=== PATIENT | female | born 2000 | race Caucasian/White ===

== ENCOUNTER → 2024-10-05 08:46 | Outpatient (REF) | payer OTHER, SELFPAY | LOC: PNTC 08:46 | PROVIDERS: ATTENDING PHYSICIAN Nurse Practitioner Family | DX: O36.70X0 Maternal care for viable fetus in abdominal pregnancy, unspecified trimester, not applicable or unspecified (principal) | CPT/HCPCS: 76801 ==

== ENCOUNTER → 2024-10-26 06:58 | Outpatient (REF) | payer OTHER, SELFPAY | LOC: PNTC 06:58 | PROVIDERS: ATTENDING PHYSICIAN Student in an Organized Health Care Education/Training Program | DX: Z36.0 Encounter for antenatal screening for chromosomal anomalies (principal); Z36.82 Encounter for antenatal screening for nuchal translucency | CPT/HCPCS: 76801; 76813 ==

== ENCOUNTER → 2024-12-21 08:41 | Outpatient (REF) | payer OTHER, SELFPAY | LOC: PNTC 08:41 | PROVIDERS: ATTENDING PHYSICIAN Student in an Organized Health Care Education/Training Program | DX: Z34.00 Encounter for supervision of normal first pregnancy, unspecified trimester (principal) | CPT/HCPCS: 76805 ==

== ENCOUNTER 2025-02-11 10:20 | Observation (INO) | payer OTHER, SELFPAY ==
[2025-02-11 10:59] LABS: % Basophils 0.2 % (0-2); % Eosinophils 0.6 % (0-6); % Lymphocytes 18.5 % (20.5-51.1); % Monocytes 8.3 % (1.7-9.3); % Neutrophils 71.4 % (42.2-75.2); Absolute Eosinophils 0.1 10^3/uL (0-0.7); Absolute Immature Granulocytes 0.1 10^3/uL (0-0.05); Absolute Lymphocytes 1.6 10^3/uL (1.2-3.4); Absolute Monocytes 0.7 10^3/uL (0.1-0.6); Absolute Neutrophils 6.2 10^3/uL (1.4-6.5); Hemoglobin 12.2 g/dL (12.0-16.0); Mean Corp Hgb Conc. 35.9 g/dL (33.0-37.0); Mean Corpuscular Volume 94.7 fL (81.0-99.0); Mean Platelet Volume 8.8 fL (7.4-10.4); Nucleated Red Blood Cells % 0 %; Platelet Count 184 10^3/uL (130-400); Red Blood Cell Count 3.59 10^6/uL (4.20-5.40); Red Cell Dist. Width 13.2 % (11.5-14.5); White Blood Cell Count 8.6 10^3/uL (4.8-10.8)
[2025-02-11 11:33] VITALS: BMI 25.0
[2025-02-11 12:50] VITALS: BP 112/57
== END 2025-02-11 13:44 | disposition home or self-care (01) ==
LOC: PNTC-IN 10:20
PROVIDERS: ADMITTING PHYSICIAN Obstetrics & Gynecology
DX: O26.893 Other specified pregnancy related conditions, third trimester (principal); Z3A.28 28 weeks gestation of pregnancy; W10.8XXA Fall (on) (from) other stairs and steps, initial encounter; Y93.01 Activity, walking, marching and hiking; Y92.9 Unspecified place or not applicable; Z88.1 Allergy status to other antibiotic agents; Z88.2 Allergy status to sulfonamides
CPT/HCPCS: 76816; 85025; 85460; 86850; 86900; 86901; G0378

== ENCOUNTER 2025-03-21 14:39 | Observation (INO) | payer OTHER, SELFPAY ==
[2025-03-21 14:47] VITALS: BP 106/55; BMI 27.0
== END 2025-03-21 16:03 | disposition home or self-care (01) ==
LOC: LDRP 14:39
PROVIDERS: ADMITTING PHYSICIAN Obstetrics & Gynecology; FAMILY PHYSICIAN Internal Medicine
DX: O36.8130 Decreased fetal movements, third trimester, not applicable or unspecified (principal); Z3A.33 33 weeks gestation of pregnancy; Z88.1 Allergy status to other antibiotic agents; Z88.2 Allergy status to sulfonamides
CPT/HCPCS: 59025; G0378

== ENCOUNTER → 2025-05-10 14:25 | Outpatient (REF) | payer OTHER, SELFPAY | LOC: PNTC 14:25 | PROVIDERS: ATTENDING PHYSICIAN Obstetrics & Gynecology | DX: O36.8120 Decreased fetal movements, second trimester, not applicable or unspecified (principal) | CPT/HCPCS: 59025; 76815; 76818 ==

== ENCOUNTER 2025-05-12 19:25 | Inpatient (IN) | payer OTHER, SELFPAY ==
[2025-05-12 19:54] VITALS: BP 115/64; BMI 29.0
[2025-05-13 06:50] LABS: Hematocrit 37.5 % (37.0-47.0); Hemoglobin 13.1 g/dL (12.0-16.0); Mean Corp Hgb Conc. 34.9 g/dL (33.0-37.0); Mean Corpuscular Volume 94.7 fL (81.0-99.0); Nucleated Red Blood Cells % 0 %; Platelet Count 155 10^3/uL (130-400); Red Cell Dist. Width 13.9 % (11.5-14.5)
[2025-05-13] MEDS: LR 1000 IV ×5 (07:00→21:33)
[2025-05-13] MEDS: PITOCIN 30 UNITS/NSS 500 ML IV (07:15)
[2025-05-13] MEDS: SUBLIMAZE 100 MCG EPIDURAL (18:29)
[2025-05-13] MEDS: FENTANYL/BUPIVACAINE 100 EPIDURAL (18:29)
[2025-05-14] MEDS: ZOFRAN 4 MG IV (01:03)
[2025-05-14] MEDS: FENTANYL/BUPIVACAINE 100 EPIDURAL (03:19)
[2025-05-14] MEDS: LR 1000 IV (04:34)
[2025-05-14] MEDS: MOTRIN 600 MG PO ×3 (10:31→23:56)
[2025-05-14] MEDS: PRENATAL PLUS PO (12:59)
[2025-05-14] MEDS: COLACE 100 MG PO (20:02)
[2025-05-15 05:46] LABS: Hematocrit 31.1 % (37.0-47.0); Hemoglobin 11.0 g/dL (12.0-16.0)
[2025-05-15] MEDS: MOTRIN 600 MG PO ×2 (08:03→17:14)
[2025-05-15] MEDS: PRENATAL PLUS 1 TABLET PO (08:18)
[2025-05-15] MEDS: COLACE 100 MG PO (08:18)
[2025-05-16] MEDS: MOTRIN 600 MG PO (00:02)
[2025-05-18 15:21] LABS: Syphilis/T. pallidum Ab Reflex Negative (Negative)
== END 2025-05-16 13:06 | disposition home or self-care (01) | DRG 807 ==
LOC: LDRP 19:25
PROVIDERS: Obstetrics & Gynecology; ADMITTING PHYSICIAN Obstetrics & Gynecology
PROC: 3E033VJ Introduction of Other Hormone into Peripheral Vein, Percutaneous Approach (ICD-10-PCS; 2025-05-12)
PROC: 10907ZC Drainage of Amniotic Fluid, Therapeutic from Products of Conception, Via Natural or Artificial Opening (ICD-10-PCS; 2025-05-13)
PROC: 0HQ9XZZ Repair Perineum Skin, External Approach (ICD-10-PCS; 2025-05-14)
PROC: 10E0XZZ Delivery of Products of Conception, External Approach (ICD-10-PCS; 2025-05-14)
DX: O48.0 Post-term pregnancy (principal); Z37.0 Single live birth; Z3A.41 41 weeks gestation of pregnancy; O70.0 First degree perineal laceration during delivery; Z88.1 Allergy status to other antibiotic agents; Z88.2 Allergy status to sulfonamides; Z87.440 Personal history of urinary (tract) infections; Z80.3 Family history of malignant neoplasm of breast; Z80.8 Family history of malignant neoplasm of other organs or systems; Z83.2 Family history of diseases of the blood and blood-forming organs and certain disorders involving the immune mechanism
CPT/HCPCS: 36415; 85014; 85018; 85025; 86780; 86850; 86900; 86901